=== PATIENT | male | born 1955 | race Caucasian/White ===

== ENCOUNTER 2020-01-05 11:55 | Outpatient (CLI) | payer MEDICARE ==
--- NOTE | 2020-01-05 12:29 | RAD ---
Chest 2 views HISTORY: Bronchitis. COMPARISON: 09/30/2014. FINDINGS: Cardiac silhouette and pulmonary vasculature are unremarkable. Mediastinum is midline. Lung s remain slightly hyperinflated. No confluent airspace consolidation, pneumothorax, or pleural fluid. 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 There are degenerative changes of the shoulders and thoracic spine. Nipple ring overlies the left breast. IMPRESSION: Chronic-type findings are stable. No active cardiopulmonary abnormalities are demonstrate d.
--- NOTE | 2020-01-05 12:31 | RAD ---
Paranasal sinuses 3 views HISTORY: Congestion. Sinusitis. Hemoptysis. FINDINGS: Air-fluid level is present within the left maxillary sinus. Lobular soft tissue density abo ut the periphery of the right maxillary sinus with near complete opacification. Sphenoid and frontal sinuses appear clear. IMPRESSION: Bilateral maxillary sinusitis.
== END 2020-01-05 11:56 | disposition home or self-care (01) ==
LOC: BICRAD 11:55
PROVIDERS: ATTEND Internal Medicine
DX: J40 Bronchitis, not specified as acute or chronic (principal); J32.0 Chronic maxillary sinusitis
CPT/HCPCS: 70220; 71046

== ENCOUNTER 2021-07-08 11:49 | Outpatient (CLI) | payer MEDICARE | END 2021-07-08 11:50 | disposition home or self-care (01) | LOC: BICRAD 11:49 | PROVIDERS: ATTEND Internal Medicine Gastroenterology | DX: R06.2 Wheezing (principal); K21.9 Gastro-esophageal reflux disease without esophagitis; R63.4 Abnormal weight loss; K59.09 Other constipation; R10.84 Generalized abdominal pain | CPT/HCPCS: 71046 ==